=== PATIENT | female | born 1985 | race Two or more races ===

== ENCOUNTER 2022-07-02 02:18 | Emergency (ER) | payer OTHER ==
[~2022-07-02] VITALS: Ht 152.4 cm; Wt 68.0 kg
[2022-07-02] MEDS ORDERED: KETO10TA2 PO (04:10)
[2022-07-02] MEDS ORDERED: ZITHROMAX500 MG PO (04:13)
== END 2022-07-02 04:32 ==
LOC: ER 02:18
DX: S05.11XA Contusion of eyeball and orbital tissues, right eye, initial encounter (principal); S50.12XA Contusion of left forearm, initial encounter; S10.93XA Contusion of unspecified part of neck, initial encounter; Y08.89XA Assault by other specified means, initial encounter; Y04.1XXA Assault by human bite, initial encounter; Y93.9 Activity, unspecified; Y92.59 Other trade areas as the place of occurrence of the external cause; Y99.9 Unspecified external cause status; Z88.0 Allergy status to penicillin; Z88.2 Allergy status to sulfonamides